=== PATIENT | male | born 1925 | race Caucasian/White ===

== ENCOUNTER 2016-11-23 14:48 | Inpatient (IN) | payer MEDICARE ==
[~2016-11-23 14:48] MED LIST: ANTI DIARRHEAL PO; ANTIVERT12.5 MG; BACTROBAN22 GM TP; CAL-CITRATE150 MG; CEPHALEXIN500 M1 PO; COMBIVENT INH14.7 GM; COUMADIN2.5 MG; COUMADIN2.5 MG PO; COUMADIN3 M1 PO; COUMADIN3 MG PO; COUMADIN5 M1 PO; COUMADIN5 MG; COUMADIN5 MG PO; COUMADIN6 M1 PO; CULTURELLE1 EAC1 PO; DESYREL150 MG PO; DUONEB 2.5-0.5 M3 ML IH; EQL FISH OIL 1,1 CA1 PO; FISH OIL 11000 MG/CA PO; FLOMAX0.4 M1 PO; FLOMAX0.4 MG PO; FLONASE16 GM; FUROSEMIDE40 MG; GLUCAGEN1 MG/VIAL IJ; GLUCAGON IN1 MG/1 ML IM; GLUCOSAMINE & C1 CAP PO; HUMALOG100 U/ML SQ; HUMULIN N100 U/ML SQ; HUMULIN R100 U/ML SQ; HYDROCODON-ACE1 EAC7 PO; KEFLEX500 MG PO; LASIX20 MG; LASIX20 MG PO; LEVAQUIN750 MG PO; LOPRE25 PO; LOPRESSOR25 MG/TA2 PO; LOTRISONE15 GM TOP; LYRICA100 MG; MAXIPIME1 G/VIAL IV; METOPROLOL TART25 M1 PO; MILK OF MA400 MG/5 M PO; MULTI VITAMIN1 EAC2 PO; MULTIVITAMIN1 TAB; MULTIVITAMIN1 TAB PO; MULTIVITAMINS1 EAC6 PO; NAPHCON15 ML OP; NORCO 5/325 TAB1 TAB PO; OMEGA 3 1,0001 EACH PO; OSTEO BI-FLEX1 EAC5 PO; OSTEO BI-FLEX1 EACH PO; PACERONE200 MG PO; PACERONE400 MG PO; POTASSIUM CHLO10 MEQ; PRAVACHOL40 MG; PREDNISONE10 MG PO; PREVALITE PAC4 G/PKT PO; PRILOSEC10 MG; PROPOXY-N-APAP1 TAB; PROSCAR5 M1 PO; SENEXON8.6 M1 PO; SENEXON8.6 MG PO; SENOKOT-S TABLE1 TAB PO; SIMVASTATIN20 MG PO; TRAZODONE HCL150 M1 PO; TRAZODONE HCL150 MG PO; TRAZODONE100 MG; TRENTAL400 MG; TYLENOL ARTHRI650 MG PO; TYLENOL COLD M PO; TYLENOL PM EX-1 EAC1 PO; TYLENOL PM EX-S1 TAB PO; TYLENOL325 MG PO; TYLENOL650 MG PO; VALIUM5 MG; VANCOMYCIN1 GM/VIA1 IV; ZOCOR20 MG PO; [UNRECOGNIZED DRUG - OTHER]
[2016-11-23 14:52] LABS: BASO % 0.1 % (0-2); HCT-HEMATOCRIT 45.1 % (36.0-53.5); IMMATURE GRANULOCYTES ABSOLUTE 0.02 tho/cmm (0-0.03); IMMATURE GRANULOCYTES PERCENT 0.2 % (0-0.3); LYMPH % 7.4 % (20-45); LYMPH ABSOLUTE COUNT 0.7 tho/cmm (0.8-4.5); MCH (MEAN CORPUSCULAR HGB) 31.9 pg (28.0-32.0); MCHC MEAN CORPUSCULAR HGB CONC 33.3 % (32.0-36.0); MONO % 5.2 % (0-12); MONOCYTE ABSOLUTE COUNT 0.5 tho/cmm (0.0-1.2); NEUTROPHIL ABSOLUTE COUNT 8.2 tho/cmm (1.6-8.0); NEUTROPHIL-AUTOMATED 8.2 tho/cmm (1.6-8.0); NEUTROPHILS % 87.1 % (40-80); RED CELL DISTRIBUTION WIDTH 15.1 % (12.4-16.4); WHITE BLOOD COUNT 9.4 tho/cmm (4.0-10.0)
[2016-11-23 14:53] LABS: INR 1.9 INR (0.9-1.1); PROTHROMBIN TIME 22.2 SECONDS (9.0-13.6)
[2016-11-23 15:05] LABS: ALB/GLOB RATIO 0.9 (0.8-2.0); ALBUMIN 3.6 g/dl (3.5-5.0); ALKALINE PHOSPHATASE 71 U/L (33-138); ALT/SGPT 22 U/L (12-78); ANION GAP 13 mmol/L (0-20); AST/SGOT 18 U/L (10-40); BILIRUBIN,TOTAL 0.8 mg/dl (0.0-1.5); BLOOD UREA NITROGEN 34 mg/dl (6-24); CALCIUM 9.3 mg/dl (8.5-10.5); CARBON DIOXIDE-VENOUS 25 mmol/L (22-32); CHLORIDE 107 mmol/l (96-110); CREATININE 2.19 mg/dl (0.60-1.30); GLUCOSE 118 mg/dL (70-110); POTASSIUM 4.3 mmol/L (3.7-5.1); SODIUM 141 mmol/L (135-145); eGFR VALUE FOR BLACK 30 mL/Min
[2016-11-23 15:18] LABS: PLATELET COUNT 53 tho/cmm (150-450)
[2016-11-23] MEDS ORDERED: COUMADIN3 M1 PO (19:30)
[2016-11-24 04:59] LABS: INR 1.7 INR (0.9-1.1); PROTHROMBIN TIME 20.4 SECONDS (9.0-13.6)
[2016-11-24 05:57] LABS: ALBUMIN 2.9 g/dl (3.5-5.0); ANION GAP 14 mmol/L (0-20); BLOOD UREA NITROGEN 32 mg/dl (6-24); CALCIUM 8.1 mg/dl (8.5-10.5); CARBON DIOXIDE-VENOUS 22 mmol/L (22-32); CHLORIDE 110 mmol/l (96-110); CREATININE 1.83 mg/dl (0.60-1.30); GLUCOSE 111 mg/dL (70-110); PHOSPHOROUS 2.1 mg/dl (2.5-4.9); POTASSIUM 4.1 mmol/L (3.7-5.1); SODIUM 142 mmol/L (135-145); eGFR VALUE FOR BLACK 37 mL/Min
[2016-11-25 04:55] LABS: INR 1.5 INR (0.9-1.1); PROTHROMBIN TIME 17.4 SECONDS (9.0-13.6)
[2016-11-25 05:51] LABS: ALBUMIN 2.6 g/dl (3.5-5.0); ALKALINE PHOSPHATASE 55 U/L (33-138); ALT/SGPT 24 U/L (12-78); ANION GAP 13 mmol/L (0-20); BLOOD UREA NITROGEN 30 mg/dl (6-24); CARBON DIOXIDE-VENOUS 23 mmol/L (22-32); CHLORIDE 111 mmol/l (96-110); GLUCOSE 106 mg/dL (70-110); POTASSIUM 4.2 mmol/L (3.7-5.1); SODIUM 143 mmol/L (135-145)
[2016-11-25 05:53] LABS: ALB/GLOB RATIO 0.8 (0.8-2.0); AST/SGOT 23 U/L (10-40); BILIRUBIN,TOTAL 0.5 mg/dl (0.0-1.5); CREATININE 1.63 mg/dl (0.60-1.30); eGFR VALUE FOR BLACK 43 mL/Min
[2016-11-26 04:45] LABS: BASO % 0.2 % (0-2); EOSINOPHIL ABSOLUTE COUNT 0.3 tho/cmm (0.0-0.7); HCT-HEMATOCRIT 38.8 % (36.0-53.5); HGB-HEMOGLOBIN 12.5 gm/dl (13.5-17.0); IMMATURE GRANULOCYTES ABSOLUTE 0.02 tho/cmm (0-0.03); IMMATURE GRANULOCYTES PERCENT 0.5 % (0-0.3); LYMPH % 16.8 % (20-45); LYMPH ABSOLUTE COUNT 0.7 tho/cmm (0.8-4.5); MCH (MEAN CORPUSCULAR HGB) 31.2 pg (28.0-32.0); MCHC MEAN CORPUSCULAR HGB CONC 32.2 % (32.0-36.0); MCV (MEAN CELL VOLUME) 96.8 fl (82.0-96.0); MEAN PLATELET VOLUME 11.9 cmc (9.4-12.4); MONO % 7.2 % (0-12); MONOCYTE ABSOLUTE COUNT 0.3 tho/cmm (0.0-1.2); NEUTROPHIL ABSOLUTE COUNT 2.9 tho/cmm (1.6-8.0); NEUTROPHIL-AUTOMATED 2.9 tho/cmm (1.6-8.0); NEUTROPHILS % 68.3 % (40-80); PLATELET COUNT 57 tho/cmm (150-450); RED BLOOD COUNT 4.01 mil/cmm (4.40-5.70)
[2016-11-26 04:49] LABS: WHITE BLOOD COUNT 4.3 tho/cmm (4.0-10.0)
[2016-11-26 04:50] LABS: INR 1.5 INR (0.9-1.1); PROTHROMBIN TIME 17.3 SECONDS (9.0-13.6)
[2016-11-27 04:55] LABS: BASO % 0.2 % (0-2); EOSINOPHIL ABSOLUTE COUNT 0.3 tho/cmm (0.0-0.7); HCT-HEMATOCRIT 38.2 % (36.0-53.5); HGB-HEMOGLOBIN 12.7 gm/dl (13.5-17.0); IMMATURE GRANULOCYTES ABSOLUTE 0.05 tho/cmm (0-0.03); IMMATURE GRANULOCYTES PERCENT 1.1 % (0-0.3); LYMPH % 15.9 % (20-45); LYMPH ABSOLUTE COUNT 0.8 tho/cmm (0.8-4.5); MCH (MEAN CORPUSCULAR HGB) 31.7 pg (28.0-32.0); MCHC MEAN CORPUSCULAR HGB CONC 33.2 % (32.0-36.0); MCV (MEAN CELL VOLUME) 95.3 fl (82.0-96.0); MEAN PLATELET VOLUME 12.3 cmc (9.4-12.4); MONO % 7.4 % (0-12); MONOCYTE ABSOLUTE COUNT 0.4 tho/cmm (0.0-1.2); NEUTROPHIL ABSOLUTE COUNT 3.2 tho/cmm (1.6-8.0); NEUTROPHIL-AUTOMATED 3.2 tho/cmm (1.6-8.0); NEUTROPHILS % 68.4 % (40-80); PLATELET COUNT 63 tho/cmm (150-450); RED BLOOD COUNT 4.01 mil/cmm (4.40-5.70); RED CELL DISTRIBUTION WIDTH 14.8 % (12.4-16.4); WHITE BLOOD COUNT 4.7 tho/cmm (4.0-10.0)
[2016-11-27 04:56] LABS: INR 1.5 INR (0.9-1.1); PROTHROMBIN TIME 18.2 SECONDS (9.0-13.6)
[2016-11-27 05:06] LABS: ALBUMIN 2.6 g/dl (3.5-5.0); ANION GAP 11 mmol/L (0-20); BLOOD UREA NITROGEN 28 mg/dl (6-24); C-REACTIVE PROTEIN 3.1 mg/dl (0-0.9); CARBON DIOXIDE-VENOUS 22 mmol/L (22-32); CHLORIDE 113 mmol/l (96-110); CREATININE 1.44 mg/dl (0.60-1.30); GLUCOSE 105 mg/dL (70-110); POTASSIUM 4.4 mmol/L (3.7-5.1); SODIUM 142 mmol/L (135-145); eGFR VALUE FOR BLACK 50 mL/Min
[2016-11-28 06:58] LABS: INR 1.8 INR (0.9-1.1); PROTHROMBIN TIME 21.5 SECONDS (9.0-13.6)
[2016-11-28] MEDS ORDERED: VANCOMYCIN HCL500 MG IV (10:59)
[2016-11-28] MEDS ORDERED: STOP THE FOLLOWING ×2 (11:02→11:03)
[2016-11-28] MEDS ORDERED: PACERONE200 M1 PO (11:04)
[2016-11-28] MEDS ORDERED: NORCO 5-325 TA1 EACH PO (11:06)
[2016-11-28] MEDS ORDERED: ULTRAM50 M1 PO (11:07)
[2016-11-28] MEDS ORDERED: TYLENOL325 M2 PO (11:08)
[2016-11-28] MEDS ORDERED: SENOKOT-S TABL1 EACH PO (11:10)
== END 2016-11-28 12:05 | DRG 872 ==
LOC: EDMED 14:48 → EMR2 15:30 → 5WE 17:30
PROVIDERS: Emergency Medicine; Internal Medicine Infectious Disease; ADMIT Internal Medicine
PROC: 3E0F7GC Introduction of Other Therapeutic Substance into Respiratory Tract, Via Natural or Artificial Opening (ICD-10-PCS; 2016-11-23)
PROC: B548ZZA Ultrasonography of Superior Vena Cava, Guidance (ICD-10-PCS; principal; 2016-11-27)
PROC: 02HV33Z Insertion of Infusion Device into Superior Vena Cava, Percutaneous Approach (ICD-10-PCS; principal; 2016-11-27)
DX: A41.9 Sepsis, unspecified organism (principal); D68.59 Other primary thrombophilia; L03.115 Cellulitis of right lower limb; E11.22 Type 2 diabetes mellitus with diabetic chronic kidney disease; N18.3 Chronic kidney disease, stage 3 (moderate); I12.9 Hypertensive chronic kidney disease with stage 1 through stage 4 chronic kidney disease, or unspecified chronic kidney disease; I25.10 Atherosclerotic heart disease of native coronary artery without angina pectoris; Z86.718 Personal history of other venous thrombosis and embolism; Z86.711 Personal history of pulmonary embolism; Z79.01 Long term (current) use of anticoagulants; I73.9 Peripheral vascular disease, unspecified; I34.0 Nonrheumatic mitral (valve) insufficiency; G89.4 Chronic pain syndrome; I48.0 Paroxysmal atrial fibrillation
CPT/HCPCS: C1751; J1650; J3370; J7030

== ENCOUNTER 2017-02-15 08:47 | Inpatient (IN) | payer MEDICARE ==
[~2017-02-15 08:47] MED LIST changes: +NORCO 5-325 TA1 EACH PO; +PACERONE200 M1 PO; +SENOKOT-S TABL1 EACH PO; +STOP THE FOLLOWING; +TYLENOL325 M2 PO; +ULTRAM50 M1 PO; +VANCOMYCIN HCL500 MG IV
[2017-02-15] MEDS ORDERED: TYLENOL PM EX-1 EAC4 PO (08:58)
[2017-02-15] MEDS ORDERED: REMERON15 M1 PO (09:03)
[2017-02-15] MEDS ORDERED: OSTEO BI-FLEX1 EAC5 PO (09:04)
[2017-02-15] MEDS ORDERED: CENTRUM COMPLE1 EAC1 PO (09:04)
[2017-02-15] MEDS ORDERED: PRESERVISION A1 EAC3 PO (09:05)
[2017-02-15] MEDS ORDERED: LOPRESSOR50 M1 PO (09:30)
[2017-02-15 09:42] LABS: BASO % 0.1 % (0-2); EOSINOPHIL ABSOLUTE COUNT 0.1 tho/cmm (0.0-0.7); HCT-HEMATOCRIT 41.7 % (36.0-53.5); HGB-HEMOGLOBIN 13.6 gm/dl (13.5-17.0); IMMATURE GRANULOCYTES ABSOLUTE 0.03 tho/cmm (0-0.03); IMMATURE GRANULOCYTES PERCENT 0.4 % (0-0.3); LYMPH % 11.6 % (20-45); LYMPH ABSOLUTE COUNT 0.8 tho/cmm (0.8-4.5); MCH (MEAN CORPUSCULAR HGB) 30.8 pg (28.0-32.0); MCHC MEAN CORPUSCULAR HGB CONC 32.6 % (32.0-36.0); MCV (MEAN CELL VOLUME) 94.6 fl (82.0-96.0); MONO % 4.8 % (0-12); MONOCYTE ABSOLUTE COUNT 0.4 tho/cmm (0.0-1.2); NEUTROPHIL ABSOLUTE COUNT 5.9 tho/cmm (1.6-8.0); NEUTROPHIL-AUTOMATED 5.9 tho/cmm (1.6-8.0); NEUTROPHILS % 82.1 % (40-80); RED BLOOD COUNT 4.41 mil/cmm (4.40-5.70); RED CELL DISTRIBUTION WIDTH 16.4 % (12.4-16.4); WHITE BLOOD COUNT 7.2 tho/cmm (4.0-10.0)
[2017-02-15 09:56] LABS: ANION GAP 17 mmol/L (0-20); BLOOD UREA NITROGEN 36 mg/dl (6-24); CALCIUM 9.1 mg/dl (8.5-10.5); CARBON DIOXIDE-VENOUS 19 mmol/L (22-32); CHLORIDE 112 mmol/l (96-110); CREATININE 2.24 mg/dl (0.60-1.30); GLUCOSE 113 mg/dL (70-110); POTASSIUM 4.6 mmol/L (3.7-5.1); SODIUM 143 mmol/L (135-145); eGFR VALUE FOR BLACK 29 mL/Min
[2017-02-15 10:19] LABS: PROCALCITONIN 0.15 ng/ml (0.05-0.09)
[2017-02-15 10:26] LABS: PLATELET COUNT 55 tho/cmm (150-450)
[2017-02-15] MEDS ORDERED: METOPROLOL TART25 M1 PO (10:56)
[2017-02-15 17:49] LABS: URINE BILIRUBIN NEGATIVE (NEG); URINE BLOOD SMALL (NEG); URINE GLUCOSE (UA) NEGATIVE (NEG); URINE KETONE NEGATIVE (NEG); URINE LEUKOCYTE ESTERASE NEGATIVE (NEG); URINE NITRITE NEGATIVE (NEG); URINE PROTEIN MODERATE (NEG)
[2017-02-15 17:50] LABS: URINE APPEARANCE CLEAR; URINE COLOR YELLOW
[2017-02-15 17:55] LABS: URINE EPITHELIAL CELLS 0-1 /[HPF] (0-10); URINE WBC 0 /[HPF] (0-5)
[2017-02-16 04:44] LABS: BASO % 0.2 % (0-2); EOS % 3.1 % (0-7); EOSINOPHIL ABSOLUTE COUNT 0.2 tho/cmm (0.0-0.7); HCT-HEMATOCRIT 36.4 % (36.0-53.5); HGB-HEMOGLOBIN 11.7 gm/dl (13.5-17.0); IMMATURE GRANULOCYTES ABSOLUTE 0.02 tho/cmm (0-0.03); IMMATURE GRANULOCYTES PERCENT 0.4 % (0-0.3); LYMPH % 16.9 % (20-45); LYMPH ABSOLUTE COUNT 0.9 tho/cmm (0.8-4.5); MCH (MEAN CORPUSCULAR HGB) 30.2 pg (28.0-32.0); MCHC MEAN CORPUSCULAR HGB CONC 32.1 % (32.0-36.0); MCV (MEAN CELL VOLUME) 94.1 fl (82.0-96.0); MONO % 6.1 % (0-12); MONOCYTE ABSOLUTE COUNT 0.3 tho/cmm (0.0-1.2); NEUTROPHIL ABSOLUTE COUNT 3.8 tho/cmm (1.6-8.0); NEUTROPHIL-AUTOMATED 3.8 tho/cmm (1.6-8.0); NEUTROPHILS % 73.3 % (40-80); PLATELET COUNT 60 tho/cmm (150-450); RED BLOOD COUNT 3.87 mil/cmm (4.40-5.70); RED CELL DISTRIBUTION WIDTH 16.5 % (12.4-16.4); WHITE BLOOD COUNT 5.2 tho/cmm (4.0-10.0)
[2017-02-16 05:03] LABS: ALB/GLOB RATIO 0.7 (0.8-2.0); ALBUMIN 2.5 g/dl (3.5-5.0); ALKALINE PHOSPHATASE 58 U/L (33-138); ALT/SGPT 22 U/L (12-78); ANION GAP 13 mmol/L (0-20); AST/SGOT 21 U/L (10-40); BILIRUBIN,TOTAL 0.4 mg/dl (0.0-1.5); BLOOD UREA NITROGEN 28 mg/dl (6-24); CARBON DIOXIDE-VENOUS 20 mmol/L (22-32); CHLORIDE 112 mmol/l (96-110); CREATININE 1.77 mg/dl (0.60-1.30); GLUCOSE 99 mg/dL (70-110); POTASSIUM 4.1 mmol/L (3.7-5.1); SODIUM 141 mmol/L (135-145); eGFR VALUE FOR BLACK 39 mL/Min
[2017-02-17 05:11] LABS: TSH-THYROID STIMULATING HORM. 0.73 uIU/ml (0.40-3.80)
[2017-02-18 04:45] LABS: ANION GAP 13 mmol/L (0-20); BLOOD UREA NITROGEN 30 mg/dl (6-24); CALCIUM 8.2 mg/dl (8.5-10.5); CARBON DIOXIDE-VENOUS 23 mmol/L (22-32); CHLORIDE 109 mmol/l (96-110); CREATININE 1.84 mg/dl (0.60-1.30); GLUCOSE 99 mg/dL (70-110); SODIUM 141 mmol/L (135-145); eGFR VALUE FOR BLACK 37 mL/Min
[2017-02-18 04:57] LABS: POTASSIUM 4.2 mmol/L (3.7-5.1)
[2017-02-18 04:59] LABS: BASO % 0.2 % (0-2); EOS % 11.2 % (0-7); EOSINOPHIL ABSOLUTE COUNT 0.5 tho/cmm (0.0-0.7); HCT-HEMATOCRIT 37.3 % (36.0-53.5); HGB-HEMOGLOBIN 12.2 gm/dl (13.5-17.0); IMMATURE GRANULOCYTES ABSOLUTE 0.01 tho/cmm (0-0.03); IMMATURE GRANULOCYTES PERCENT 0.2 % (0-0.3); LYMPH % 22.8 % (20-45); LYMPH ABSOLUTE COUNT 0.9 tho/cmm (0.8-4.5); MCH (MEAN CORPUSCULAR HGB) 30.5 pg (28.0-32.0); MCHC MEAN CORPUSCULAR HGB CONC 32.7 % (32.0-36.0); MCV (MEAN CELL VOLUME) 93.3 fl (82.0-96.0); MONO % 7.7 % (0-12); MONOCYTE ABSOLUTE COUNT 0.3 tho/cmm (0.0-1.2); NEUTROPHIL ABSOLUTE COUNT 2.3 tho/cmm (1.6-8.0); NEUTROPHIL-AUTOMATED 2.3 tho/cmm (1.6-8.0); NEUTROPHILS % 57.9 % (40-80); PLATELET COUNT 69 tho/cmm (150-450); RED CELL DISTRIBUTION WIDTH 16.2 % (12.4-16.4)
[2017-02-19 04:46] LABS: INR 1.2 INR (0.9-1.1); PROTHROMBIN TIME 13.5 SECONDS (9.0-13.6)
[2017-02-19 04:47] LABS: BASO % 0.2 % (0-2); EOS % 7.8 % (0-7); EOSINOPHIL ABSOLUTE COUNT 0.3 tho/cmm (0.0-0.7); HCT-HEMATOCRIT 35.7 % (36.0-53.5); HGB-HEMOGLOBIN 11.6 gm/dl (13.5-17.0); IMMATURE GRANULOCYTES ABSOLUTE 0.03 tho/cmm (0-0.03); IMMATURE GRANULOCYTES PERCENT 0.7 % (0-0.3); LYMPH % 15.1 % (20-45); LYMPH ABSOLUTE COUNT 0.6 tho/cmm (0.8-4.5); MCH (MEAN CORPUSCULAR HGB) 30.3 pg (28.0-32.0); MCHC MEAN CORPUSCULAR HGB CONC 32.5 % (32.0-36.0); MCV (MEAN CELL VOLUME) 93.2 fl (82.0-96.0); MEAN PLATELET VOLUME 10.2 cmc (9.4-12.4); MONO % 7.3 % (0-12); MONOCYTE ABSOLUTE COUNT 0.3 tho/cmm (0.0-1.2); NEUTROPHIL ABSOLUTE COUNT 2.9 tho/cmm (1.6-8.0); NEUTROPHIL-AUTOMATED 2.9 tho/cmm (1.6-8.0); NEUTROPHILS % 68.9 % (40-80); PLATELET COUNT 59 tho/cmm (150-450); RED BLOOD COUNT 3.83 mil/cmm (4.40-5.70); RED CELL DISTRIBUTION WIDTH 16.1 % (12.4-16.4); WHITE BLOOD COUNT 4.2 tho/cmm (4.0-10.0)
[2017-02-19 04:53] LABS: ALBUMIN 2.4 g/dl (3.5-5.0); ANION GAP 11 mmol/L (0-20); BLOOD UREA NITROGEN 29 mg/dl (6-24); C-REACTIVE PROTEIN 5.9 mg/dl (0-0.9); CARBON DIOXIDE-VENOUS 21 mmol/L (22-32); CHLORIDE 111 mmol/l (96-110); CREATININE 1.72 mg/dl (0.60-1.30); GLUCOSE 115 mg/dL (70-110); PHOSPHOROUS 2.5 mg/dl (2.5-4.9); POTASSIUM 4.1 mmol/L (3.7-5.1); SODIUM 139 mmol/L (135-145); eGFR VALUE FOR BLACK 40 mL/Min
[2017-02-19 06:00] LABS: ESR-ERYTHROCYTE SED RATE 32 mm/hr (0-20)
[2017-02-20 05:03] LABS: HGB-HEMOGLOBIN 11.4 gm/dl (13.5-17.0)
[2017-02-20 07:04] LABS: PLATELET COUNT 71 tho/cmm (150-450)
[2017-02-21 05:27] LABS: ANION GAP 13 mmol/L (0-20); BLOOD UREA NITROGEN 29 mg/dl (6-24); CARBON DIOXIDE-VENOUS 23 mmol/L (22-32); CHLORIDE 109 mmol/l (96-110); CREATININE 1.86 mg/dl (0.60-1.30); GLUCOSE 98 mg/dL (70-110); POTASSIUM 4.2 mmol/L (3.7-5.1); SODIUM 141 mmol/L (135-145); eGFR VALUE FOR BLACK 36 mL/Min
[2017-02-21 06:22] LABS: PROCALCITONIN 0.24 ng/ml (0.05-0.09)
[2017-02-22 05:54] LABS: HGB-HEMOGLOBIN 11.1 gm/dl (13.5-17.0); PLATELET COUNT 59 tho/cmm (150-450)
[2017-02-23 06:05] LABS: ALBUMIN 2.4 g/dl (3.5-5.0); ANION GAP 12 mmol/L (0-20); BLOOD UREA NITROGEN 26 mg/dl (6-24); CALCIUM 8.4 mg/dl (8.5-10.5); CARBON DIOXIDE-VENOUS 24 mmol/L (22-32); CHLORIDE 111 mmol/l (96-110); CREATININE 1.79 mg/dl (0.60-1.30); GLUCOSE 106 mg/dL (70-110); PHOSPHOROUS 3.3 mg/dl (2.5-4.9); SODIUM 142 mmol/L (135-145); eGFR VALUE FOR BLACK 38 mL/Min
[2017-02-23 06:11] LABS: POTASSIUM 4.6 mmol/L (3.7-5.1)
[2017-02-23] MEDS ORDERED: DUONEB NEB (07:53)
[2017-02-23] MEDS ORDERED: NEURONTIN100 M1 PO (10:23)
[2017-02-23] MEDS ORDERED: NEURONTIN400 M1 PO (10:23)
[2017-02-23] MEDS ORDERED: MUCINEX600 M1 PO (10:24)
== END 2017-02-23 13:05 | DRG 603 ==
LOC: EDMED 08:47 → EMR2 11:33 → 5WE 17:28
PROVIDERS: Emergency Medicine; Internal Medicine Medical Oncology; Internal Medicine Nephrology; ADMIT Internal Medicine
PROC: 02HV33Z Insertion of Infusion Device into Superior Vena Cava, Percutaneous Approach (ICD-10-PCS; 2017-02-18)
PROC: B548ZZA Ultrasonography of Superior Vena Cava, Guidance (ICD-10-PCS; 2017-02-18)
PROC: 07DR3ZX Extraction of Iliac Bone Marrow, Percutaneous Approach, Diagnostic (ICD-10-PCS; principal; 2017-02-19)
DX: L03.116 Cellulitis of left lower limb (principal); N17.9 Acute kidney failure, unspecified; E11.22 Type 2 diabetes mellitus with diabetic chronic kidney disease; D68.59 Other primary thrombophilia; E11.40 Type 2 diabetes mellitus with diabetic neuropathy, unspecified; N18.3 Chronic kidney disease, stage 3 (moderate); D69.6 Thrombocytopenia, unspecified; I73.9 Peripheral vascular disease, unspecified; Z53.20 Procedure and treatment not carried out because of patient's decision for unspecified reasons; I12.9 Hypertensive chronic kidney disease with stage 1 through stage 4 chronic kidney disease, or unspecified chronic kidney disease; Z51.5 Encounter for palliative care; R39.2 Extrarenal uremia; N28.1 Cyst of kidney, acquired; R53.1 Weakness; R62.7 Adult failure to thrive; W18.30XA Fall on same level, unspecified, initial encounter; Y92.002 Bathroom of unspecified non-institutional (private) residence as the place of occurrence of the external cause; R13.10 Dysphagia, unspecified; N40.1 Benign prostatic hyperplasia with lower urinary tract symptoms; J44.9 Chronic obstructive pulmonary disease, unspecified; J47.9 Bronchiectasis, uncomplicated; G89.4 Chronic pain syndrome; I25.10 Atherosclerotic heart disease of native coronary artery without angina pectoris; I48.0 Paroxysmal atrial fibrillation; M15.9 Polyosteoarthritis, unspecified; Z66 Do not resuscitate; E86.0 Dehydration; R26.81 Unsteadiness on feet; D63.1 Anemia in chronic kidney disease; D63.8 Anemia in other chronic diseases classified elsewhere; Z87.891 Personal history of nicotine dependence; Z91.81 History of falling; Z86.718 Personal history of other venous thrombosis and embolism; Z88.0 Allergy status to penicillin; Z88.2 Allergy status to sulfonamides; Z91.040 Latex allergy status; Z85.46 Personal history of malignant neoplasm of prostate
CPT/HCPCS: C1751; C1830; G0364; G8996-GN-CK; G8997-GN-CJ; J1644; J2250; J3010; J3370; J7030